=== PATIENT | female | born 1965 | race Two or more races ===

== ENCOUNTER → 2017-05-28 | Outpatient (CLI) | payer BC ==
--- NOTE | 2017-05-28 13:39 | KCIC ---
Indication: Low back pain. Time of exam 1:17 PM Curvature and alignment is unremarkable. The vertebral body heights are well-maintained. No acute compression fracture is detected. Mild degenerative spurring is noted at multiple levels. No definite spondylolysis or spondylolisthesis is detected. IMPRESSION: No acute abnormality is detected. Electronically signed by: Mateo Kim MD (05/28/2017 1:36 PM) [id number]
== END | disposition home or self-care (01) ==
LOC: KCIC 13:12
PROVIDERS: ATTEND Internal Medicine
DX: M54.5 Low back pain (principal)
CPT/HCPCS: 72110